=== PATIENT | female | born 1995 | race Caucasian/White ===

== ENCOUNTER 2017-12-30 20:01 | Emergency (ER) | payer OTHER ==
--- NOTE | 2017-12-30 20:34 | UC ---
FLU HPI - HPI Summary HPI Summary: Pt presents with sore throat, cough, fever, and body aches for 4 days. She is a student at [employer] and has had many sick contacts with strep and the flu over the past few weeks. She has not been taking anything OTC for her fever or discomfort. Denies cough, SOB, chest pain, abdominal pain, n/v/d/c. - History of Current Complaint Stated Complaint: FLU-LIKE SYMPTOMS Time Seen by Provider: 12/30/17 20:34 Hx Obtained From: Patient Onset/Duration: Gradual Onset Severity Currently: Mild Severity Initially: Moderate Pain Intensity: 4 Pain Scale Used: 0-10 Numeric Associated Signs & Symptoms: Positive: Fever, Myalgia - Allergy/Home Medications Allergies/Adverse Reactions: Allergies Allergy/AdvReac Type Severity Reaction Status Date / Time No Known Allergies Allergy Verified 12/30/17 20:37 PMH/Surg Hx/FS Hx/Imm Hx Previously Healthy: Yes - Surgical History Surgical History: None - Family History Known Family History: Positive: None - Social History Occupation: Student Lives: Dormitory/Roommates Alcohol Use: Occasionally Substance Use Type: None Smoking Status (MU): Never Smoked Tobacco Review of Systems Constitutional: Fever, Fatigue, Other - Body aches Skin: Negative Eyes: Negative ENT: Sore Throat Respiratory: Negative Cardiovascular: Negative Gastrointestinal: Negative Neurovascular: Negative Musculoskeletal: Negative Neurological: Headache Psychological: Negative All Other Systems Reviewed And Are Negative: Yes Physical Exam - Summary Physical Exam Summary: GENERAL: Mildly ill appearing. WDWN. No pain distress. SKIN: No rashes, sores, ulcers, masses, lesions. HEENT: Head: AT/NC Eyes: EOM intact. Conjunctiva clear without inflammation or discharge. Ears: Hearing grossly normal. TMs intact, no bulging, erythema, or edema. Nose: Nasal mucosa pink and moist. NTTP maxillary and frontal sinus. Throat: Posterior oropharynx without exudates, erythema, or tonsillar enlargement. Uvula midline. NECK: Supple. Nontender. No lymphadenopathy. CHEST: CTAB. No r/r/w. No accessory muscle use. Breathing comfortably and in no distress. CV: RRR. Without m/r/g. Pulses intact. Brisk cap refill. NEURO: Alert. CN II-XII grossly intact. PSYCH: Age appropriate behavior. Triage Information Reviewed: Yes Flu Course/Dx - Course Course Of Treatment: POC flu A positive. Tamiflu. Advised rest, fluids, ibuprofen/tylenol for fever and discomfort. - Differential Dx/Diagnosis Provider Diagnoses: Influenza A Discharge - Discharge Plan Condition: Stable Disposition: HOME Prescriptions: Oseltamivir CAP* [Tamiflu CAP*] 75 mg PO BID #10 cap Patient Education Materials: Influenza (ED) Forms: *School Release Referrals: [facility] [Primary Care Provider] - Additional Instructions: If you develop an increasing fever, shortness of breath, chest pain, new or worsening symptoms - please call your PCP or go to the ED.
[2017-12-30 20:37] VITALS: BP 120/82
[2017-12-30] MEDS ORDERED: Oseltamivir CAP* 75 MG CAP PO ONE (21:08)
[2017-12-30] MEDS ORDERED: Acetaminophen TAB* 325 MG PO ONE (21:08)
[2017-12-30] MEDS ORDERED: Oseltamivir CAP* 75 MG CAP ONE (21:10)
== END 2017-12-30 21:19 | disposition home or self-care (01) ==
LOC: UCEAST 20:01
DX: J10.1 Influenza due to other identified influenza virus with other respiratory manifestations (principal)
CPT/HCPCS: 87502; 99202; A9270-GY; G0463

== ENCOUNTER 2018-07-11 18:23 | Emergency (ER) | payer SELFPAY ==
--- NOTE | 2018-07-11 20:35 | UC ---
UC General HPI - HPI Summary HPI Summary: 22 y/o female present to the urgent care c/o Three days of increased anxiety d/t school pressure. No medication for anxiety. Has meds for depression - History of Current Complaint Chief Complaint: UCGeneralIllness Stated Complaint: ANXIETY Time Seen by Provider: 07/11/18 20:17 Hx Obtained From: Patient Hx Last Menstrual Period: 06/24/18 Pain Intensity: 0 - Allergy/Home Medications Allergies/Adverse Reactions: Allergies Allergy/AdvReac Type Severity Reaction Status Date / Time No Known Allergies Allergy Verified 07/11/18 18:57 Home Medications: Home Medications Control 07/11/18 [History] FLUoxetine CAP* [Prozac CAP*] 20 mg PO BEDTIME 07/11/18 [History Confirmed 07/11] PMH/Surg Hx/FS Hx/Imm Hx - Surgical History Surgical History: None Surgery Procedure, Year, and Place: ACL bilateral 2015 - Family History Known Family History: Positive: None - Social History Alcohol Use: Occasionally Substance Use Type: None Smoking Status (MU): Never Smoked Tobacco Physical Exam Vital Signs: Initial Vital Signs Temp 98.1 F 07/11/18 18:52 Pulse 87 07/11/18 18:52 Resp 16 07/11/18 18:52 BP 120/73 07/11/18 18:52 Pulse Ox 100 07/11/18 18:52 Discharge - Sign-Out/Discharge Documenting (check all that apply): Patient Departure - D/c home All imaging exams completed and their final reports reviewed: No Studies - Discharge Plan Condition: Stable Disposition: HOME Prescriptions: hydrOXYzine HCL TAB* [Atarax 25 MG TAB*] 25 mg PO TID PRN #29 tab PRN Reason: Anxiety Patient Education Materials: Anxiety in Adolescents (ED) [facility] Care [facility]] - 1 Day Additional Instructions: 1-Please take Atarax PO as directed to alleviate anxiety symptoms. rest, eat well 2-Please f/u with your PCP in 1-2 days at [facility] for further evaluation and treatment in your symptoms. 3- Continue Counseling 4- If you feel severe anxiety and palpitations please go immediately to the ER for further management - Billing Disposition and Condition Condition: STABLE Disposition: Home
[2018-07-11] MEDS ORDERED: hydrOXYzine HCL TAB* 25 MG PO ONE (20:40)
[2018-07-11 21:03] VITALS: BP 134/66
== END 2018-07-11 21:50 | disposition home or self-care (01) ==
LOC: UCEAST 18:23
DX: F41.9 Anxiety disorder, unspecified (principal)
CPT/HCPCS: 99212; A9270-GY; G0463